=== PATIENT | female | born 1960 | race Caucasian/White ===

== ENCOUNTER → 2016-10-07 | Outpatient (CLI) | payer OTHER ==
[~2016-10-07] MED LIST: ASPI81TA82 PO; LEVO150T7 PO
[2016-10-07 09:45] LABS: BICARBONATE 30.3 MEQ/L (21.0-32.0); HDL CHOLESTEROL 58.9 MG/DL (40.0-60.0); POTASSIUM 4.5 MEQ/L (3.5-5.1)
== END ==
LOC: PLAB 07:15
PROVIDERS: ATTEND Family Medicine
DX: R73.9 Hyperglycemia, unspecified (principal); E03.8 Other specified hypothyroidism; Z13.220 Encounter for screening for lipoid disorders
CPT/HCPCS: 80048; 80061; 84443